=== PATIENT | male | born 1965 | race African-American/Black ===

== ENCOUNTER 2017-04-18 02:27 | Emergency (ER) | payer MEDICARE, MEDICAID ==
[2017-04-18] MEDS ORDERED: NORMAL SALINE 1000 ML 1,000 ML IV ONE (03:13)
--- NOTE | 2017-04-18 03:18 | ER Document Report ---
ED General - General Chief Complaint: breathing problem Stated Complaint: DIFFICULTY BREATHING Time Seen by Provider: 04/18/17 03:07 Notes: Patient is a 52-year-old male who presents with complaints of some trouble breathing tonight. She had surgery on Monday. 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 He is packing goes from intraorally into his right nare. He also has a drain that goes into his neck and into the peak mucosal on the right side. He supposed to follow-up at 10 AM this morning to have the packing removed. Family is concerned because he was having some increased drainage from the packing in the nose seemed as if he were more difficulty breathing through his mouth and nose.. No vomiting. No other complaints at this time. TRAVEL OUTSIDE OF THE [place] IN LAST 30 DAYS: No - Related Data Allergies/Adverse Reactions: tuberculin,PPD,multi-puncture Allergy (Verified 04/18/17 02:38) Past Medical History - Social History Smoking Status: Unknown if Ever Smoked Frequency of alcohol use: None Drug Abuse: None Family History: Reviewed & Not Pertinent - Past Medical History Cardiac Medical History: Reports: Hx Hypertension Renal/ Medical History: Denies: Hx Peritoneal Dialysis Review of Systems - Review of Systems Notes: My Normal Review Basic REVIEW OF SYSTEMS: CONSTITUTIONAL : Denies fever, chills, or sweats. Denies recent illness. EENT: recent Facial surgery. CARDIOVASCULAR: Denies chest pain. RESPIRATORY: Dyspnea MUSCULOSKELETAL: Denies neck or back pain or joint pain or swelling. SKIN: Denies rash or skin lesions. HEMATOLOGIC : Denies easy bruising or bleeding. NEUROLOGICAL: Denies altered mental status or loss of consciousness. Denies headache. Denies weakness or paralysis or loss of use of either side. Denies problems with gait or speech. Denies sensory or motor loss. ALL OTHER SYSTEMS REVIEWED AND NEGATIVE. Physical Exam - Vital signs Vitals: Temp Pulse Resp BP Pulse Ox 98.9 F 121 H 20 151/84 H 96 04/18/17 02:32 04/18/17 02:32 04/18/17 02:32 04/18/17 02:32 04/18/17 02:32 - Notes Notes: General Appearance: Well nourished, alert, cooperative, no acute distress, no obvious discomfort. Well appearing Vitals: reviewed, See vital signs table. Head: Patient has a packing in the right nare. Left nare is clear. When patient opens his mouth he has a packing that extends from the roof of the mouth on the right side over to the cecal mucosal on the right side. There is no blood in his mouth or bleeding. Eyes: PERRL, EOMI, Conjuctiva clear Mouth: Mouth. No pharyngeal erythema. Neck: Supple, on the right side of the neck. No swelling to the neck. No active bleeding. No redness or inflammation. Lungs: No wheezing, No rales, No rhonci, No accessory muscle use, good air exchange bilaterally. Heart: Normal rate, Regular rythm, No murmur, no rub Skin: warm, dry, appropriate color, no rash Neuro: speech clear, oriented x 3, normal affect, responds appropriately to questions. Course - Vital Signs Vital signs: Temp Pulse Resp BP Pulse Ox 98.9 F 121 H 12 148/84 H 97 04/18/17 02:32 04/18/17 02:32 04/18/17 05:00 04/18/17 05:00 04/18/17 05:00 - Laboratory Result Diagrams: 04/18/17 03:45 04/18/17 03:45 Laboratory results interpreted by me: 04/18/17 04/18/17 03:45 03:45 Monocytes % 15.7 H Glucose 116 H - Transfer of Care Notes: 04/18/17 06:06 Patient has continued to not have any worsening. I talked to at length and made sure she had no further concerns. She says that his breathing seems well. She says as this is concerned she is a little bit swelling on the side of his head. She says that the swelling of his face from the surgery went down and she thinks that the swelling to see if now is probably just more exacerbated because of swelling in front of it had gone away. Patient says that he is feeling improved and is not have any significant difficulty breathing at this time. He is in no distress. He has no stridor. His lateral neck x-ray is normal-appearing. Feel that he is safe to be discharged home to follow-up with his surgeon in the office in less than 4 hours at his 10am appointment. I did speak with Dr. Martinez, covering for Dr. Stewart, has no further suggestions and agrees with plan for the patient to follow-up with Dr. Stewart in the office today Discharge - Discharge Clinical Impression: Post-op pain Condition: Good Disposition: HOME, SELF-CARE Additional Instructions: Please follow up with Dr. Stewart this am as scheduled. Please return to the ER immediately if you have increased swelling to your neck or face, increased difficulty breathing, or if you feel unwell. Referrals: TOMAS SOLIS, [Primary Care Provider] - Follow up as needed
[2017-04-18] MEDS ORDERED: HYDROMORPHONE HCL INJ/PF 2 MG/ML AMPULE IV ONE (03:40)
[2017-04-18 03:54] LABS: ABSOLUTE BASOPHILS # (AUTO) 0.1 10^3/uL (0.0-0.2); ABSOLUTE EOSINOPHILS # (AUTO) 0.1 10^3/uL (0.0-0.6); ABSOLUTE LYMPHOCYTES (AUTO) 1.5 10^3/uL (0.5-4.7); ABSOLUTE MONOCYTES (AUTO) 1.4 10^3/uL (0.1-1.4); ABSOLUTE NEUT (AUTO) 6.1 10^3/uL (1.7-8.2); BASOPHILS % (AUTO) 0.9 % (0-2); EOSINOPHILS % (AUTO) 1.3 % (0-6); HEMATOCRIT 42.6 % (37.9-51.0); HEMOGLOBIN 13.8 g/dL (13.5-17.0); HGB HCT DIFFERENCE -1.2; LYMPHOCYTES % (AUTO) 16.4 % (13-45); MEAN CORPUSCULAR HEMOGLOBIN 28.8 pg (27.0-33.4); MEAN CORPUSCULAR HGB CONC 32.3 g/dL (32.0-36.0); MEAN CORPUSCULAR VOLUME 89 fl (80-97); MONOCYTES % (AUTO) 15.7 % (3-13); RED BLOOD COUNT 4.77 10^6/uL (4.35-5.55); SEGMENTED NEUTROPHILS % (AUTO) 65.7 % (42-78); WHITE BLOOD COUNT 9.2 10^3/uL (4.0-10.5)
[2017-04-18 04:08] LABS: ANION GAP 14 (5-19); BLOOD UREA NITROGEN 17 mg/dL (7-20); CALCIUM 9.7 mg/dL (8.4-10.2); CARBON DIOXIDE 30 mmol/L (22-30); CHLORIDE 99 mmol/L (98-107); CREATININE RESULT 0.96 mg/dL (0.52-1.25); GLUCOSE 116 mg/dL (75-110); POTASSIUM 3.8 mmol/L (3.6-5.0)
--- NOTE | 2017-04-18 05:26 | RADIOLOGY REPORT (SQ) ---
EXAM DESCRIPTION: SOFT TISSUE NECK COMPLETED DATE/TIME: 04/18/2017 5:03 am REASON FOR STUDY: post op problem COMPARISON: None. NUMBER OF VIEWS: Two views. 4 images. TECHNIQUE: AP and lateral radiographic image of the soft tissues of the neck. LIMITATIONS: None. FINDINGS: EPIGLOTTIS: Normal. Contour normal. Aryepiglottic folds normal. PREVERTEBRAL SOFT TISSUES: Normal. Right paracentral nuchal drainage band -catheter and overlying lr rgical clips with moderate swelling. SUBGLOTTIC AREA: Normal. No narrowing. RETROPHARYNGEAL SPACE: Normal. No soft tissue masses. BONY STRUCTURES: No significant findings. Moderate disc desiccation between the C3 and C7 levels. LUNG APICES: Normal. OTHER: No radiopaque foreign body. No other significant finding. IMPRESSION: Postsurgical appearance of the neck. TECHNICAL DOCUMENTATION: JOB ID: [id number] [employer]- All Rights Reserved
[2017-04-18 06:09] VITALS: BP 156/86
== END 2017-04-18 06:15 | disposition home or self-care (01) ==
LOC: ER 02:27
DX: G89.18 Other acute postprocedural pain (principal); R06.00 Dyspnea, unspecified; I10 Essential (primary) hypertension
CPT/HCPCS: 99285; 96374; 36415; 85025; 80048; 70360; J1170; J7030

== ENCOUNTER 2017-10-06 07:24 | Day surgery (SDC) | payer MEDICARE, MEDICAID ==
[2017-10-06] MEDS ORDERED: NALOXONE HCL INJ/PF 0.4 MG/1 ML SDV ONE (07:31)
[2017-10-06] MEDS ORDERED: DIPHENHYDRAMINE HCL 50 MG/ML VIAL ONE (07:31)
[2017-10-06] MEDS ORDERED: ONDANSETRON HCL INJ/PF 4 MG/2 ML SDV ONE (07:31)
[2017-10-06] MEDS ORDERED: MIDAZOLAM 2 MG/2 ML INJ ONE (07:32)
[2017-10-06] MEDS ORDERED: FLUMAZENIL INJ 0.5 MG/5 ML VIAL ONE (07:32)
[2017-10-06] MEDS ORDERED: EPINEPHRINE INJ 1 MG/10 ML DISP.SYRIN ONE (07:32)
[2017-10-06] MEDS ORDERED: GLUCAGON,HUMAN RECOMB 1 MG INJ ONE (07:32)
[2017-10-06] MEDS: FENTANYL CITRATE INJ/PF 100 MCG/2 ML AMPUL ONE ×2 (08:09→08:13)
[2017-10-06] MEDS: MIDAZOLAM 2 MG/2 ML INJ ONE ×2 (08:11→08:20)
--- NOTE | 2017-10-06 08:32 | Operative Report ---
Operative Report DATE OF SURGERY: 10/06/17 Operative Report: The risks benefits and alternatives of the procedure explained to the patient in detail and informed consent is obtained.A GIF Olympus video scope was inserted into the patient's mouth and hypopharynx ,the esophagus is identified intubated and insufflated ,the scope was then advanced through the esophagus stomach and duodenum, retroflexion maneuver is done, the esophagus stomach and first and second portions of the duodenum examined PREOPERATIVE DIAGNOSIS: Colorectal cancer screening POSTOPERATIVE DIAGNOSIS: Small polyp right side of the colon status post biopsy for removal OPERATION: Colonoscopy with biopsy SURGEON: EMILIANO PALMER ANESTHESIA: Moderate Sedation - 6 mg of Versed, 100 mcg of fentanyl. Conscious sedation monitoring time 30 minutes. TISSUE REMOVED OR ALTERED: As noted above. COMPLICATIONS: None. ESTIMATED BLOOD LOSS: None. INTRAOPERATIVE FINDINGS: As noted above. PROCEDURE: Patient tolerated the procedure well. No immediate postprocedure complications are noted. Patient discharged in good condition. Discharge date 10/06/2017. Discharge diet: Regular. Discharge activity: Regular. 2-3 week follow-up to discuss findings. We will wait on pathology. If negative surveillance 10 year Patient is instructed to call the office or proceed to the emergency room should there be any further problems or questions.
[2017-10-06 09:35] VITALS: BP 130/90
== END 2017-10-06 09:40 | disposition home or self-care (01) ==
LOC: END 07:24
PROVIDERS: ATTEND Internal Medicine Gastroenterology
PROC: 0DBL8ZX Excision of Transverse Colon, Via Natural or Artificial Opening Endoscopic, Diagnostic (ICD-10-PCS; principal; 2017-10-06 08:00)
DX: Z12.11 Encounter for screening for malignant neoplasm of colon (principal); K63.5 Polyp of colon; I10 Essential (primary) hypertension; E78.5 Hyperlipidemia, unspecified; R73.03 Prediabetes; Z79.899 Other long term (current) drug therapy; Z85.828 Personal history of other malignant neoplasm of skin
CPT/HCPCS: 45380; 88305 ×2; J2250; J3010; J0171; J1200; J1610; J2310; J2405; J3490